=== PATIENT | female | born 1995 | race Caucasian/White ===

== ENCOUNTER 2025-04-20 06:10 | Outpatient (CLI) | payer SELFPAY ==
[2025-04-20 06:28] VITALS: BP 119/75; PULSE 82
[2025-04-20 06:29] VITALS: PULSE 84; O2SAT 96
--- NOTE | 2025-04-20 10:26 | PC.OBNST ---
NST Note NST Note Start: 04/20/25 06:19 Freq: ONCE Status: Active Protocol: Document 04/20/25 09:33 CUDDYH (Rec: 04/20/25 10:26 CUDDY [id number]) NST Note 1 Para (# of births) 0 EDC 07/30/25 Gestational Age In 25 Weeks & 4 Days Weeks & Days Patient Presented Other with Complaint(s) of Other Complaints Fall Reactive Yes Appropriate for Yes Gestational Age JERRY Lopez RN Date 04/20/25 Reactive Yes Appropriate for Yes Gestational Age JERRY Guzmán RN Date 04/20/25 OB NST charge Yes Complete NST Note Yes via Write Note The provider's electronic signature indicates the NST is reactive/appropriate for gestational age. *Note to provider: If an addendum is required, open the patient's chart and click on the note under the Nurse/Allied Health tab.
== END 2025-04-20 09:33 | disposition home or self-care (01) ==
LOC: OB OUT 06:13 → OB 06:15
PROVIDERS: PCP Advanced Practice Midwife; Visit Provider Advanced Practice Midwife
DX: O26.892 Other specified pregnancy related conditions, second trimester (principal); W01.0XXA Fall on same level from slipping, tripping and stumbling without subsequent striking against object, initial encounter; Y93.02 Activity, running; Z3A.25 25 weeks gestation of pregnancy
CPT/HCPCS: 59025; G0463